=== PATIENT | male | born 1960 | race Caucasian/White ===

== ENCOUNTER 2019-05-11 10:38 | Emergency (ER) | payer MEDICARE ==
--- NOTE | 2019-05-11 11:26 | ER Document Report ---
ED Medical Screen (RME) - General Chief Complaint: Back Pain Stated Complaint: BACK PAIN Time Seen by Provider: 05/11/19 11:21 Mode of Arrival: Ambulatory Information source: Patient Notes: 58 yo male presents to ed for back pain chronic has spinal stenosis. He goes to pain management and went last week recieved toradol and back steroid injection. next day he saw cardioligist for afib for 18 hours. Now pain to low back and radiating down left leg. He is on oxycodon 15 mg q4 hours xtampa er 27 mg every 12 hours for pain. Planning to evaluate for surgery has to wait for cardioligist approval. I have greeted and performed a rapid initial assessment of this patient. A comprehensive ED assessment and evaluation of the patient, analysis of test results and completion of medical decision making process will be conducted by an additional ED providers. - Related Data Allergies/Adverse Reactions: fentanyl Allergy (Verified 05/11/19 11:22) Past Medical History - General Information source: Patient - Social History Cigarette use (# per day): Yes - 1/2 ppd Frequency of alcohol use: Social Drug Abuse: None Lives with: Family - Past Medical History Cardiac Medical History: Reports: Hx Atrial Fibrillation, Hx Coronary Artery Disease, Hx Hypercholesterolemia, Hx Hypertension Pulmonary Medical History: Reports: Hx Sleep Apnea EENT Medical History: Reports: None Neurological Medical History: Reports: Hx Seizures Endocrine Medical History: Reports: None Renal/ Medical History: Reports: None Malignancy Medical History: Reports None GI Medical History: Reports: Hx Ulcer, Hx Colonoscopy Musculoskeltal Medical History: Reports Hx Arthritis, Reports Hx Musculoskeletal Deformity, Reports Hx Musculoskeletal Trauma Past Surgical History: Reports: Hx Inguinal Hernia, Hx Orthopedic Surgery - tkr, left shoulder replace, fusion lumbar, right shoulder rotator cuff, Hx Pacemaker - Immunizations Immunizations up to date: Yes Hx Diphtheria, Pertussis, Tetanus Vaccination: Yes - 3016 Physical Exam - Vital signs Vitals: Temp Pulse Resp BP Pulse Ox 98.1 F 75 24 H 147/71 H 100 05/11/19 10:48 05/11/19 10:48 05/11/19 10:48 05/11/19 10:48 05/11/19 10:48 Course - Vital Signs Vital signs: Temp Pulse Resp BP Pulse Ox 98.1 F 75 24 H 147/71 H 100 05/11/19 10:48 05/11/19 10:48 05/11/19 10:48 05/11/19 10:48 05/11/19 10:48 - Laboratory Result Diagrams: 05/11/19 14:10 05/11/19 14:10
[2019-05-11] MEDS ORDERED: KETOROLAC TROMETHAMINE 60 MG/2 ML SDV IM ONE (11:28)
[2019-05-11] MEDS ORDERED: LIDOCAINE 5% (700 MG) TRANSDERMAL ADH..PATCH TP ONE (11:29)
--- NOTE | 2019-05-11 13:03 | ER Document Report ---
ED General - General Chief Complaint: Back Pain Stated Complaint: BACK PAIN Time Seen by Provider: 05/11/19 11:21 Mode of Arrival: Ambulatory - [facility] Notes: 58-year-old male to the emergency department with complaints of low back pain that has been getting progressively worse for the past week. He states that he is in pain management with Dr. alicia and this Sunday he had epidural injections. He states that usually this helps him. He denies any recent falls. He denies any bladder or bowel incontinence. He does admit to pain that radiates down the back of his left leg. He denies any fevers. He is not an IV drug abuser. Does admit to some night sweats at night. He states his last MRI 4 months ago showed spinal stenosis. He had back surgery before as well as multiple other orthopedic surgeries. He does take oxycodone for his chronic pain management. He states that more surgery has been suggested to him to help him with his pain. He states that he has a plan to go back and get a another epidural shot this week and then move forward with the surgery. - Related Data Allergies/Adverse Reactions: fentanyl Allergy (Verified 05/11/19 11:22) Past Medical History - General Information source: Patient - Social History Smoking Status: Current Every Day Smoker Cigarette use (# per day): Yes - 1/2 ppd Chew tobacco use (# tins/day): No Frequency of alcohol use: Social Drug Abuse: None Lives with: Family Family History: Reviewed & Not Pertinent Patient has suicidal ideation: No Patient has homicidal ideation: No - Past Medical History Cardiac Medical History: Reports: Hx Atrial Fibrillation, Hx Coronary Artery Disease, Hx Hypercholesterolemia, Hx Hypertension Pulmonary Medical History: Reports: Hx Sleep Apnea EENT Medical History: Reports: None Neurological Medical History: Reports: Hx Seizures Endocrine Medical History: Reports: None Renal/ Medical History: Reports: None. Denies: Hx Peritoneal Dialysis Malignancy Medical History: Reports None GI Medical History: Reports: Hx Ulcer, Hx Colonoscopy Musculoskeletal Medical History: Reports Hx Arthritis, Reports Hx Musculoskeletal Deformity, Reports Hx Musculoskeletal Trauma Past Surgical History: Reports: Hx Inguinal Hernia, Hx Orthopedic Surgery - tkr, left shoulder replace, fusion lumbar, right shoulder rotator cuff, Hx Pacemaker - Immunizations Immunizations up to date: Yes Hx Diphtheria, Pertussis, Tetanus Vaccination: Yes - 3016 Review of Systems - Review of Systems Constitutional: denies: Chills, Fever EENT: No symptoms reported Cardiovascular: denies: See HPI, Chest pain, Palpitations, Dyspnea, Syncope, Dizziness, Lightheaded Respiratory: denies: Cough, Short of breath Gastrointestinal: denies: Abdominal pain, Diarrhea, Nausea, Vomiting Musculoskeletal: See HPI, Back pain Skin: denies: No symptoms reported Hematologic/Lymphatic: No symptoms reported Neurological/Psychological: No symptoms reported -: Yes All other systems reviewed and negative Physical Exam - Vital signs Vitals: Temp Pulse Resp BP Pulse Ox 98.1 F 75 24 H 147/71 H 100 05/11/19 10:48 05/11/19 10:48 05/11/19 10:48 05/11/19 10:48 05/11/19 10:48 Interpretation: Normal - General General appearance: Appears well In distress: Mild Notes: Mild pain distress - HEENT Head: Normocephalic, Atraumatic Eyes: Normal Pupils: PERRL - Respiratory Respiratory status: No respiratory distress Chest status: Nontender Breath sounds: Normal Chest palpation: Normal - Cardiovascular Rhythm: Regular Heart sounds: Normal auscultation Murmur: No - Abdominal Inspection: Normal Distension: No distension Bowel sounds: Normal Tenderness: Nontender Organomegaly: No organomegaly - Back Back: Tender, Vertebra tenderness - There is midline tenderness to palpation over the lumbar spine with no step-off or deformity. Noted surgical scar. There is no erythema, edema or rash to the back. Patient has positive left straight leg raise.. No: CVA tenderness - Extremities General upper extremity: Normal inspection, Nontender, Normal color, Normal ROM, Normal temperature General lower extremity: Normal inspection, Nontender, Normal color, Normal ROM, Normal temperature, Normal weight bearing. No: Oscar's sign - Neurological Neuro grossly intact: Yes Cognition: Normal Orientation: AAOx4 Kristyn Coma Scale Eye Opening: Spontaneous Kristyn Coma Scale Verbal: Oriented Carlos Coma Scale Motor: Obeys Commands Kristyn Coma Scale Total: 15 Speech: Normal Cranial nerves: Normal. No: Facial palsy, Forehead sparing, Gaze palsy, Sensory deficit, Tongue deviation Motor strength normal: LUE, RUE, LLE, RLE Sensory: Normal - Psychological Associated symptoms: Normal affect, Normal mood - Skin Skin Temperature: Warm Skin Moisture: Dry Skin Color: Normal Course - Re-evaluation Re-evalutation: 05/11/19 Rounded on patient. He states that time the 1.5 mg of Dilaudid and 10 mg of Valium to see pains that he could actually relax a little bit however his pain h as returned again. I discussed the patient with Dr. Goldberg, ER attending. At this point we do not have the capability of getting an MRI and also patient is requiring fair amount of pain medicine for control. he has intractable back pain at this point. Plan will be to try to transfer the patient for admission to neurosurgical service at [facility]. Have placed page. 05/11/19 18:30 Discussed patient with JOANNA oWod with neurosurgery at [facility]. He would like for the patient to have Solu-Medrol but this patient he states would need to go to the hospitalist service with him consulting for his intractable back pain. We will give 125 of Solu-Medrol and page the hospitalist service at [facility] to discuss admission. 05/11/19 19:[address] Goldie Clemens, hospitalist at [facility]. Discussed patient with her. Discussed patient's physical exam, his medication requirements and little control over pain. Discussed conversation with Neurosurgery. She states that she will accept the patient. Impression: Intractable low back pain, acute on chronic back pain. Patient to be transferred and admitted to [facility] to medicine service with neurosurgery consulting. Reviewed plan with patient and he agrees with the plan. - Vital Signs Vital signs: Temp Pulse Resp BP Pulse Ox 97.5 F 104 H 16 147/86 H 97 05/11/19 18:09 05/11/19 18:09 05/11/19 18:09 05/11/19 18:09 05/11/19 18:09 05/11/19 17:35 - Laboratory Result Diagrams: 05/11/19 14:10 05/11/19 14:10 Laboratory results interpreted by me: 05/11/19 05/11/19 14:10 14:10 WBC 12.9 H Absolute Neuts (auto) 9.3 H Total Bilirubin 1.4 H - Diagnostic Test Radiology reviewed: Image reviewed, Reports reviewed Discharge - Discharge Clinical Impression: Intractable low back pain Condition: Stable Disposition: [facility]
[2019-05-11] MEDS ORDERED: HYDROMORPHONE HCL INJ/PF 2 MG/ML AMPULE IV ONE ×5 (14:28→23:07)
[2019-05-11] MEDS ORDERED: ONDANSETRON HCL INJ/PF 4 MG/2 ML SDV IV ONE (14:28)
[2019-05-11 14:30] LABS: ABSOLUTE BASOPHILS # (AUTO) 0.2 10^3/uL (0.0-0.2); ABSOLUTE EOSINOPHILS # (AUTO) 0.1 10^3/uL (0.0-0.6); ABSOLUTE LYMPHOCYTES (AUTO) 2.5 10^3/uL (0.5-4.7); ABSOLUTE MONOCYTES (AUTO) 0.9 10^3/uL (0.1-1.4); ABSOLUTE NEUT (AUTO) 9.3 10^3/uL (1.7-8.2); BASOPHILS % (AUTO) 1.2 % (0-2); HEMATOCRIT 49.4 % (37.9-51.0); HEMOGLOBIN 16.9 g/dL (13.5-17.0); LYMPHOCYTES % (AUTO) 19.5 % (13-45); MEAN CORPUSCULAR HEMOGLOBIN 30.6 pg (27.0-33.4); MEAN CORPUSCULAR HGB CONC 34.3 g/dL (32.0-36.0); MEAN CORPUSCULAR VOLUME 89 fl (80-97); MONOCYTES % (AUTO) 6.8 % (3-13); PLATELET COUNT 324 10^3/uL (150-450); RED BLOOD COUNT 5.53 10^6/uL (4.35-5.55); RED CELL DISTRIBUTION WIDTH 13.4 % (11.5-14.0); SEGMENTED NEUTROPHILS % (AUTO) 71.5 % (42-78); TOTAL CELLS COUNTED % (AUTO) 100 %; WHITE BLOOD COUNT 12.9 10^3/uL (4.0-10.5)
[2019-05-11 14:46] LABS: ALBUMIN 4.3 g/dL (3.5-5.0); ALKALINE PHOSPHATASE 64 U/L (38-126); ANION GAP 10 (5-19); ASPARTATE AMINO TRANSFERASE 23 U/L (17-59); BILIRUBIN,DIRECT 0.3 mg/dL (0.0-0.4); BILIRUBIN,TOTAL 1.4 mg/dL (0.2-1.3); BLOOD UREA NITROGEN 17 mg/dL (7-20); CALCIUM 9.8 mg/dL (8.4-10.2); CARBON DIOXIDE 26 mmol/L (22-30); CHLORIDE 105 mmol/L (98-107); GLUCOSE 95 mg/dL (75-110); TOTAL PROTEIN 6.8 g/dL (6.3-8.2)
[2019-05-11] MEDS ORDERED: DIAZEPAM INJ 10 MG/2 ML DISP.SYRIN IV ONE (15:58)
--- NOTE | 2019-05-11 16:04 | RADIOLOGY REPORT (SQ) ---
EXAM DESCRIPTION: CT LUMBAR SPINE WITHOUT COMPLETED DATE/TIME: 05/11/2019 3:35 pm REASON FOR STUDY: low back pain COMPARISON: None. TECHNIQUE: Axial images acquired through the lumbar spine without intravenous contrast. Images revi ewed with lung, soft tissue and bone windows. Reconstructed coronal and sagittal MPR images reviewed . All images stored on PACS. All CT scanners at this facility use dose modulation, iterative reconstruction, and/or weight based d osing when appropriate to reduce radiation dose to as low as reasonably achievable (ALARA). [facility]: Dose Right [facility]: CareDose [facility]: Dose Right [facility]: Teradose 4D [facility]: [employer] RADIATION DOSE: CT Rad equipment meets quality standard of care and radiation dose reduction techniq ues were employed. CTDIvol: 30.6 mGy. DLP: 1028 mGy-cm. mGy. LIMITATIONS: None. FINDINGS: SEGMENTATION: Normal. No transitional anatomy. ALIGNMENT: Mild anterolisthesis of L4 on L5. VERTEBRAL BODIES: No acute fracture. DISCS: Multilevel degenerative disc disease and osteophytosis. Study limited by lack of intrathecal contrast. PEDICLES, TRANSVERSE PROCESSES: No fractures. No dislocation. FACETS, POSTERIOR ELEMENTS: No fractures. No dislocation. Multilevel facet arthropathy. HARDWARE: Posterior orthopedic hardware at L4-L5. VISUALIZED RIBS: No fractures. SOFT TISSUES: No significant or acute finding in adjacent soft tissues. OTHER: Degenerative changes at the bilateral sacroiliac joints. IMPRESSION: No acute fracture at the lumbar spine. Degenerative and postsurgical changes. TECHNICAL DOCUMENTATION: JOB ID: [id number] Quality ID # [id number]: Final reports with documentation of one or more dose reduction techniques (e.g., Au tomated exposure control, adjustment of the mA and/or kV according to patient size, use of iterative reconstruction technique) 2010 [employer]- All Rights Reserved Reading location - IP/workstation name: [email or web address]
[2019-05-11] MEDS ORDERED: METHYLPREDNISOLONE INJ 125 MG/2 ML SDV IV ONE (18:28)
[2019-05-11 19:25] LABS: AMORPHOUS SEDIMENT,URINE TRACE /HPF; APPEARANCE,URINE SLIGHTLY-CLOUDY; BILIRUBIN,URINE NEGATIVE (NEGATIVE); GLUCOSE, URINE NEGATIVE (NEGATIVE); KETONES,URINE NEGATIVE (NEGATIVE); LEUKOCYTE ESTERASE,URINE NEGATIVE (NEGATIVE); NITRITE,URINE NEGATIVE (NEGATIVE); PROTEIN,URINE 30 mg/dL (NEGATIVE); URINE SPECIFIC GRAVITY 1.029
[2019-05-11 19:26] LABS: COLOR,URINE DARK YELLOW
[2019-05-11] MEDS ORDERED: KETOROLAC TROMETHAMINE INJ/PF 30 MG/1 ML SDV IV ONE (20:37)
[2019-05-12] MEDS ORDERED: HYDROMORPHONE HCL INJ/PF 2 MG/ML AMPULE IV ONE (01:31)
[2019-05-12 01:44] VITALS: BP 131/74
== END 2019-05-12 01:39 | disposition short-term general hospital (02) ==
LOC: ER 10:38
DX: M54.5 Low back pain (principal); F17.210 Nicotine dependence, cigarettes, uncomplicated; I48.91 Unspecified atrial fibrillation; I25.10 Atherosclerotic heart disease of native coronary artery without angina pectoris; E78.00 Pure hypercholesterolemia, unspecified; I10 Essential (primary) hypertension; Z98.1 Arthrodesis status
CPT/HCPCS: 36415; 85025; 80053; 81001; 72131; J3360; J1885 ×2; J2930; J1170 ×2; J2405; 96374; 96375; 96376; 99285